=== PATIENT | female | born 1990 | race African-American/Black ===

== ENCOUNTER 2024-05-06 06:14 | Observation (INO) | payer OTHER ==
[2024-05-06 06:26] VITALS: RESP 16; BMI 26.4
[2024-05-06] MEDS ORDERED: ACETAMINOPHEN INJECTION 100 ML ONE (09:28)
[2024-05-06] MEDS ORDERED: MECLIZINE HCL 25 MG TABLET (FP) ONE ×2 (09:28→14:36)
[2024-05-06] MEDS ORDERED: METOCLOPRAMIDE HCL INJECTION 10 MG/2 ML VIAL ONE (09:28)
[2024-05-06] MEDS: MECLIZINE HCL 25 MG TABLET (FP) PO ONE (09:52)
[2024-05-06] MEDS: METOCLOPRAMIDE HCL INJECTION 10 MG/2 ML VIAL IVPUSH ONE (09:52)
[2024-05-06] MEDS: ACETAMINOPHEN 1000 MG/100 ML BAG IVPB ONE (09:52)
[2024-05-06] MEDS: SODIUM CHLORIDE 1,000 ML IV STA (09:59)
[2024-05-06 10:03] LABS: BASO % 0.3 % (0-2.0); EOS % 0.4 % (0-4.5); HEMATOCRIT 39.4 % (32.4-45.2); HEMOGLOBIN 13.3 GM/dL (10.7-15.3); LYMPH % 18.9 % (8-40); MCH 30.5 pg (25.7-33.7); MCHC 33.7 g/dl (32.0-36.0); MEAN CELL VOLUME 90.5 fl (80-96); MEAN PLT VOLUME 10.3 fl (7.5-11.1); MONO % 6.7 % (3.8-10.2); NEUT % 73.7 % (42.8-82.8); PLATELET COUNT 202 10^3/uL (134-434); RBC 4.35 M/mm3 (3.60-5.2); RDW 15.1 % (11.6-15.6); WHITE BLOOD COUNT 5.8 K/mm3 (4.0-10.0)
[2024-05-06 10:13] LABS: POTASSIUM 3.1 mmol/L (3.5-5.1)
[2024-05-06 10:15] LABS: ALBUMIN 3.5 g/dl (3.4-5.0); CALCIUM 8.8 mg/dL (8.5-10.1)
[2024-05-06 10:16] LABS: BLOOD UREA NITROGEN 3.9 mg/dL (7-18)
[2024-05-06 10:19] LABS: CREATININE 0.6 mg/dL (0.55-1.3)
[2024-05-06 10:20] LABS: BILIRUBIN,TOTAL 0.4 mg/dL (0.2-1); TOT PROT 6.6 g/dl (6.4-8.2)
[2024-05-06] MEDS ORDERED: TAPENTADOL HYDROCHLORIDE 75 MG TABLET PO PRN ×2 (13:44→13:47)
[2024-05-06] MEDS ORDERED: ACETAMINOPHEN 500 MG TABLET (FP) PO PRN (14:04)
[2024-05-06] MEDS ORDERED: IBUPROFEN 400 MG TABLET (FP) PO PRN (14:04)
[2024-05-06] MEDS: MECLIZINE HCL 25 MG TABLET (FP) PO PRN (14:38)
[2024-05-06] MEDS ORDERED: POTASSIUM CHLORIDE ORAL LIQUID 20 MEQ/15 ML ONE (15:09)
[2024-05-06] MEDS: POTASSIUM CHLORIDE ORAL LIQUID 20 MEQ/15 ML PO ONE (15:20)
[2024-05-06 15:28] VITALS: BP 118/98; PULSE 91; TEMP 98.4
[2024-05-06] MEDS ORDERED: PREGABALIN 50 MG CAPSULE PO SCH (22:00)
[2024-05-06] MEDS ORDERED: AMITRIPTYLINE HCL 50 MG TABLET PO SCH (22:00)
== END 2024-05-06 16:05 | disposition home or self-care (01) ==
LOC: JER 06:14 → JERBED 13:02
PROVIDERS: ADMIT Internal Medicine; ATTEND Registered Nurse
PROC: 3E0337Z Introduction of Electrolytic and Water Balance Substance into Peripheral Vein, Percutaneous Approach (ICD-10-PCS; principal; 2024-05-06)
DX: S06.0X1A Concussion with loss of consciousness of 30 minutes or less, initial encounter (principal); W01.0XXA Fall on same level from slipping, tripping and stumbling without subsequent striking against object, initial encounter; Y92.59 Other trade areas as the place of occurrence of the external cause; Y93.89 Activity, other specified; R42 Dizziness and giddiness; E87.6 Hypokalemia; R00.2 Palpitations
CPT/HCPCS: 0241U-QW; 36415; 70450-TC; 80053; 84703; 85025; 93005; 93010; 99285-25; G0378